=== PATIENT | male | born 1985 | race Caucasian/White ===

== ENCOUNTER 2018-01-28 14:13 | Emergency (ER) | payer SELFPAY ==
[2018-01-28 14:18] VITALS: BP 153/98; PULSE 114; RESP 19; TEMP 36.8; O2SAT 99; BMI 27.1
--- NOTE | 2018-01-28 14:28 | DI.RAD.S_ITS ---
PROCEDURE: XR CHEST 1V INDICATIONS: Chest pain. TECHNIQUE: One view of the chest was acquired. COMPARISON: [facility], , CHEST 2 VIEW, 04/28/2011, 15:03. FINDINGS: Surgical changes and devices: None. Lungs and pleura: No pleural effusions or pneumothorax. Lungs are clear. Mediastinum: Mediastinal contours appear normal. Heart size is normal. Bones and chest wall: No suspicious bony lesions. Overlying soft tissues appear unremarkable. IMPRESSION: Mild cardiomegaly. Dictated by: Karol Butts M.D. on 01/28/2018 at 15:05 Approved by: Karol Butts M.D. on 01/28/2018 at 15:05
--- NOTE | 2018-01-28 14:59 | ED.CHESTPAIN ---
HPI - Chest Pain General Chief Complaint: Chest Pain Stated Complaint: Panic/Chest Pain Time Seen by Provider: 01/28/18 14:38 Source: patient and police Mode of arrival: ambulatory Limitations: no limitations History of Present Illness HPI narrative: Patient is a 32-year-old male presenting with chest pain. He was being booked for a warrant when he suddenly developed chest pain. Please brought him in for evaluation. He says he feels left-sided chest pain that hurts when he breathes sometimes he denies fever or cough. He does take ibuprofen as needed he has no abdominal pain. MD complaint: chest pain Related Data Home Medications Medication Instructions Recorded Confirmed ibuprofen #0 12/26/11 Review of Systems Review of Systems GENERAL: Denies chills, fatigue, malaise, fever, sweats, travel HEENT: Denies sinus pain, ear pain, sore throat, difficulty swallowing, neck pain RESPIRATORY: Denies dyspnea, cough, wheezing, hemoptysis, sputum. CARDIOVASCULAR: See HPI GASTROINTESTINAL: Denies nausea, vomiting, abdominal pain, diarrhea, constipation, melena. : Denies dysuria, frequency, incontinence, hematuria, urinary retention, flank pain. MUSCULOSKELETAL: Denies weakness, joint pain, or bony pain SKIN: No rash, no erythema, no pruritus NEUROLOGIC: Denies weakness, dizziness, headache, numbness, change in speech, confusion PSYCHIATRIC: No concerning psychosocial issues. 12 point review of systems is negative except for those stated above and HPI [facility] Medical History Patient denies medical problems (Acute) Social History Smoking Status: Current every day smoker Exam Initial Vital Signs Initial Vital Signs: Vital Signs Temperature 98.2 F 01/28/18 14:18 Pulse Rate 114 H 01/28/18 14:18 Respiratory Rate 19 01/28/18 14:18 Blood Pressure 153/98 H 01/28/18 14:18 Pulse Oximetry 99 01/28/18 14:18 GENERAL: Anxious male no acute distress is speaking in full sentences. HEENT: Head atraumatic,EOMI, pupils reactive, CARDIOVASCULAR: Regular rate and rhythm without murmurs, rubs or gallops. RESPIRATORY: Breath sounds equal bilaterally, no wheezes rales or rhonchi. ABDOMEN: Soft, nontender. Normoactive bowel sounds all 4 quadrants. No guarding or rebound. EXTREMITIES: Normal range of motion, no clubbing or edema. Neurovascularly intact NEUROLOGICAL: Alert and oriented x4.Normal gait and speech. SKIN: Warm, dry, no laceration, no petechiae, no rashes or lesions. Course Orders Ordered: ED Orders 01/28/18 14:19 EKG-12 Lead Routine 01/28/18 14:28 Chest [XR chest 1V] Stat Discontinued Medications Al Hydrox/Mg Hydrox/Simethicone 20 ml/ Lidocaine HCl 15 ml 0 ml PO NOW ONE Stop: 01/28/18 14:53 Last Admin: 01/28/18 15:02 Dose: 45 ml Ibuprofen (Advil) 800 mg PO NOW ONE Stop: 01/28/18 14:53 Last Admin: 01/28/18 15:02 Dose: 800 mg Vital Signs - 8 hr 01/28/18 14:18 Temperature 98.2 F Pulse Rate 114 H Respiratory Rate 19 Blood Pressure 153/98 H Pulse Oximetry 99 MDM - Chest Pain Imaging Data Chest x-ray: Radiologist's impression: [address] [address] XRay Report Signed Patient: Aniyah Sears [facility]#: [id number] : 1985Acct:[id number] Age/Sex: 32 / MDate of Service: 01/28/18 Loc: ED Accession Number: [id number] Procedure: XR chest 1V Ordering Provider: Concepción Brock D.O. PROCEDURE: XR CHEST 1V INDICATIONS: Chest pain. TECHNIQUE: One view of the chest was acquired. COMPARISON: [facility], , CHEST 2 VIEW, 04/28/2011, 15:03. FINDINGS: Surgical changes and devices: None. Lungs and pleura: No pleural effusions or pneumothorax. Lungs are clear. Mediastinum: Mediastinal contours appear normal. Heart size is normal. Bones and chest wall: No suspicious bony lesions. Overlying soft tissues appear unremarkable. IMPRESSION: Mild cardiomegaly. Dictated by: Karol Butts M.D. on 01/28/2018 at 15:05 ECG Data Attestation: I personally reviewed and interpreted this ECG as follows: Prior ECG tracings: not available for review Interpretation: Sinus rhythm rate [address] changes no T-wave inversions. [facility] Narrative Medical decision making narrative: Offered of blood work and more evaluation for patient. However patient was not want that at this time. He has been released by the police. He would like to go take care of his warrant. He is overall feeling better he feels like his breathing has come down. Discharge Plan Departure Patient Disposition: Home Clinical Impression: Atypical chest pain Discharge Date/Time: 01/28/18 15:19 Interventions: ED Discharge Assessment Last Done: 01/28/18 15:19 Instructions: DI for Atypical Chest Pain Activity Restrictions/Additional Instructions: *You have been diagnosed with atypical chest pain *What to do: X-ray and EKG are within limits *Continue to take medications as directed *Follow up with your primary care provider in 2-3 days *Return to ER if you should have any new, worsening or concerning symptoms Prescriptions: No Action ibuprofen 200 MG capsule Qty: 0 RF: 0 Referrals: [facility] [Provider Group]
[2018-01-28] MEDS: IBUPROFEN 400 MG TABLET 800 MG PO (15:02)
[2018-01-28] MEDS: MAG HYDROX/ALUMINUM/SIMETH SUS 20 ML, LIDOCAINE VISCOUS 2% 15 ML PO (15:02)
--- NOTE | 2018-01-28 15:02 | ED_ITS ---
HPI - Chest Pain General Chief Complaint: Chest Pain Stated Complaint: Panic/Chest Pain Time Seen by Provider: 01/28/18 14:38 Source: patient and police Mode of arrival: ambulatory Limitations: no limitations History of Present Illness HPI narrative: Patient is a 32-year-old male presenting with chest pain. He was being booked for a warrant when he suddenly developed chest pain. Please brought him in for evaluation. He says he feels left-sided chest pain that hurts when he breathes sometimes he denies fever or cough. He does take ibuprofen as needed he has no abdominal pain. MD complaint: chest pain Related Data Home Medications Medication Instructions Recorded Confirmed ibuprofen #0 12/26/11 Review of Systems Review of Systems GENERAL: Denies chills, fatigue, malaise, fever, sweats, travel HEENT: Denies sinus pain, ear pain, sore throat, difficulty swallowing, neck pain RESPIRATORY: Denies dyspnea, cough, wheezing, hemoptysis, sputum. CARDIOVASCULAR: See HPI GASTROINTESTINAL: Denies nausea, vomiting, abdominal pain, diarrhea, constipation, melena. : Denies dysuria, frequency, incontinence, hematuria, urinary retention, flank pain. MUSCULOSKELETAL: Denies weakness, joint pain, or bony pain SKIN: No rash, no erythema, no pruritus NEUROLOGIC: Denies weakness, dizziness, headache, numbness, change in speech, confusion PSYCHIATRIC: No concerning psychosocial issues. 12 point review of systems is negative except for those stated above and HPI [facility] Medical History Patient denies medical problems (Acute) Social History Smoking Status: Current every day smoker Exam Initial Vital Signs Initial Vital Signs: Vital Signs Temperature 98.2 F 01/28/18 14:18 Pulse Rate 114 H 01/28/18 14:18 Respiratory Rate 19 01/28/18 14:18 Blood Pressure 153/98 H 01/28/18 14:18 Pulse Oximetry 99 01/28/18 14:18 GENERAL: Anxious male no acute distress is speaking in full sentences. HEENT: Head atraumatic,EOMI, pupils reactive, CARDIOVASCULAR: Regular rate and rhythm without murmurs, rubs or gallops. RESPIRATORY: Breath sounds equal bilaterally, no wheezes rales or rhonchi. ABDOMEN: Soft, nontender. Normoactive bowel sounds all 4 quadrants. No guarding or rebound. EXTREMITIES: Normal range of motion, no clubbing or edema. Neurovascularly intact NEUROLOGICAL: Alert and oriented x4.Normal gait and speech. SKIN: Warm, dry, no laceration, no petechiae, no rashes or lesions. Course Orders Ordered: ED Orders 01/28/18 14:19 EKG-12 Lead Routine 01/28/18 14:28 Chest [XR chest 1V] Stat Discontinued Medications Al Hydrox/Mg Hydrox/Simethicone 20 ml/ Lidocaine HCl 15 ml 0 ml PO NOW ONE Stop: 01/28/18 14:53 Last Admin: 01/28/18 15:02 Dose: 45 ml Ibuprofen (Advil) 800 mg PO NOW ONE Stop: 01/28/18 14:53 Last Admin: 01/28/18 15:02 Dose: 800 mg Vital Signs - 8 hr 01/28/18 14:18 Temperature 98.2 F Pulse Rate 114 H Respiratory Rate 19 Blood Pressure 153/98 H Pulse Oximetry 99 MDM - Chest Pain Imaging Data Chest x-ray: Radiologist's impression: [address] [address] XRay Report Signed Patient: Aniyah Sears [facility]R#: [id number] : 1985Acct:[id number] Age/Sex: 32 / MDate of Service: 01/28/18 Loc: ED Accession Number: [id number] Procedure: XR chest 1V Ordering Provider: Concepción Brock D.O. PROCEDURE: XR CHEST 1V INDICATIONS: Chest pain. TECHNIQUE: One view of the chest was acquired. COMPARISON: [facility], , CHEST 2 VIEW, 04/28/2011, 15:03. FINDINGS: Surgical changes and devices: None. Lungs and pleura: No pleural effusions or pneumothorax. Lungs are clear. Mediastinum: Mediastinal contours appear normal. Heart size is normal. Bones and chest wall: No suspicious bony lesions. Overlying soft tissues appear unremarkable. IMPRESSION: Mild cardiomegaly. Dictated by: Karol Butts M.D. on 01/28/2018 at 15:05 ECG Data Attestation: I personally reviewed and interpreted this ECG as follows: Prior ECG tracings: not available for review Interpretation: Sinus rhythm rate [address] changes no T-wave inversions. [facility] Narrative Medical decision making narrative: Offered of blood work and more evaluation for patient. However patient was not want that at this time. He has been released by the police. He would like to go take care of his warrant. He is overall feeling better he feels like his breathing has come down. Discharge Plan Departure Patient Disposition: Home Clinical Impression: Atypical chest pain Discharge Date/Time: 01/28/18 15:19 Interventions: ED Discharge Assessment Last Done: 01/28/18 15:19 Instructions: DI for Atypical Chest Pain Activity Restrictions/Additional Instructions: *You have been diagnosed with atypical chest pain *What to do: X-ray and EKG are within limits *Continue to take medications as directed *Follow up with your primary care provider in 2-3 days *Return to ER if you should have any new, worsening or concerning symptoms Prescriptions: No Action ibuprofen 200 MG capsule Qty: 0 RF: 0 Referrals: [facility] [Provider Group]
== END 2018-01-28 15:19 | disposition home or self-care (01) ==
PROVIDERS: Emergency Provider Emergency Medicine
DX: R07.89 Other chest pain (principal)
CPT/HCPCS: 71045; 93005; 93010; 99282; 99284

== ENCOUNTER → 2020-06-15 08:37 | Outpatient (CLI) | payer OTHER, SELFPAY ==
[2020-06-15] MEDS: COVID-19 VACC #1, MRNA(MOD) 100 MCG/0.5 ML VIAL IM (08:48)
== END ==
PROVIDERS: Visit Provider Internal Medicine
DX: Z23 Encounter for immunization (principal)
CPT/HCPCS: 0011A; 91301

== ENCOUNTER → 2020-07-13 07:38 | Outpatient (CLI) | payer OTHER, SELFPAY ==
[2020-07-13] MEDS: COVID-19 VACC #2, MRNA(MOD) 100 MCG/0.5 ML VIAL IM (07:48)
== END ==
PROVIDERS: Visit Provider Internal Medicine
DX: Z23 Encounter for immunization (principal)
CPT/HCPCS: 0012A; 91301

== ENCOUNTER 2022-11-08 16:58 | Observation (INO) | payer OTHER, SELFPAY ==
[2022-11-08] VITALS (12 sets, daily range): BP systolic 148–187; BP diastolic 76–108; PULSE 50–91; RESP 18–32; TEMP 35.9–36.6; O2SAT 95–100; BMI 35.2
[2022-11-08] MEDS: ONDANSETRON 4 MG/2 ML INJ IV (17:40)
[2022-11-08 17:42] LABS: Add Manual Diff / Slide Review NO; Basophils Absolute Auto 100 /uL (0-100); Basophils Percent Auto 0.5 % (0-2); Eosinophils Absolute Auto 100 /uL (0-450); Eosinophils Percent Auto 0.4 % (2-4); Hematocrit 44.6 % (41-53); Hemoglobin 15.7 g/dL (13.5-17.5); Lymphocytes Absolute Auto 2400 /uL (1100-4500); Lymphocytes Percent Auto 14.6 % (25-40); Mean Corpuscular HGB Conc 35.2 % (30-36); Mean Corpuscular Hemoglobin 29.3 PG (26-34); Mean Corpuscular Volume 83.3 fL (80-100); Monocytes Absolute Auto 1000 /uL (0-900); Monocytes Percent Auto 6.2 % (3-14); Neutrophils Absolute Auto 12900 /uL (1500-7000); Neutrophils Percent Auto 78.3 % (50-75); Platelet Count 301 X10^3/uL (150-400); Red Blood Cell Count 5.36 X10^6/uL (4.5-5.9); Red Cell Distribution Width 13.2 % (11.6-14.8); White Blood Cell Count 16.5 X10^3/uL (4.5-11.0)
--- NOTE | 2022-11-08 17:46 | DI.US.S_ITS ---
PROCEDURE: US ABDOMEN LIMITED INDICATIONS: RIGHT UPPER QUADRANT PAIN/ELEVATED WHITE BLOOD CELL COUNT TECHNIQUE: Real-time scanning was performed of the abdominal and retroperitoneal organs, with image documentation. COMPARISON: None. FINDINGS: Liver: Liver is normal in size and demonstrates mildly increased echotexture likely secondary to of hepatic fatty infiltration. Hypoechoic area adjacent to the gallbladder fossa likely secondary to fat sparing. Gallbladder: There is nonmobile gallstones in the gallbladder neck. Gallbladder is distended. No gallbladder wall thickening or pericholecystic fluid. There is sonographic Wilkinson's sign. Biliary ducts: Intrahepatic bile ducts are non-dilated. Extrahepatic bile duct caliber measures 4.2 mm. Normal is 6-7 mm or less in diameter, or 10 mm or less post-cholecystectomy. Pancreas: Visualized portions of the pancreas are sonographically normal. Miscellaneous: No free abdominal fluid. IMPRESSION: 1. Cholelithiasis with a nonmobile gallstone in the gallbladder neck. Gallbladder is distended. There is sonographic Wilkinson sign. No gallbladder wall thickening or pericholecystic fluid collection. If there is clinical suspicion for acute cholecystitis, consider HIDA scan. 2. Diffusely increased hepatic echotexture. This finding is most likely secondary to hepatic fatty infiltration although other hepatocellular disease may have a similar appearance. Recommend clinical correlation. Dictated by: Karol Butts M.D. on 11/08/2022 at 18:51 Approved by: Karol Butts M.D. on 11/08/2022 at 18:54
[2022-11-08] MEDS: SODIUM CHLORIDE 0.9% 500 ML 1000 ML IV (17:53)
--- NOTE | 2022-11-08 17:56 | ED.ABDPAIN ---
HPI - Abdominal Pain <Martha Gibbs PA-C - Last Filed: 11/08/22 19:20> General Chief Complaint: Abdominal Pain Stated Complaint: T-2 TESTED POSITVE COVID, KNOT IN STOMACH Time Seen by Provider: 11/08/22 17:44 Source: patient Mode of arrival: Ambulatory History of Present Illness HPI narrative: Patient is a 37-year-old male who 1st tested positive for COVID 8 days ago. His symptoms were runny nose and body aches. Over the past 24 hours he is developed abdominal pain and can not keep any food down due to nausea and vomiting. Feels like he needs to have a bowel movement but can not. Last bowel movement was yesterday. His pain is mostly in the right upper quadrant. He is no history of abdominal surgeries aside from it inguinal hernia repair as a child and denies any recent fever. Related Data Home Medications Medication Instructions Recorded Confirmed ibuprofen 200 mg capsule 600 mg PO PRN PRN Pain (Scale 12/26/11 11/08/22 Score 1-3) ##0 Allergies Allergy/AdvReac Type Severity Reaction Status Date / Time No Known Drug Allergies Allergy Verified 11/08/22 17:14 Review of Systems <Martha Gibbs PA-C - Last Filed: 11/08/22 19:20> Review of Systems ROS Unobtainable: All systems reviewed & are unremarkable except as noted in HPI and below Patient History <Martha Gibbs PA-C - Last Filed: 11/08/22 19:20> Medical History Patient denies medical problems Social History household members: spouse Smoking Status: Current every day smoker alcohol intake: former Smoking Status: Current every day smoker alcohol intake frequency: a few times a week Substance Use Type: marijuana Exam <Martha Gibbs PA-C - Last Filed: 11/08/22 19:20> Narrative Exam Narrative: GENERAL: 37 year old patient appears stated age. Well-developed patient, in moderate distress. Patient appears uncomfortable. NEURO: AOx3. HEAD: Atraumatic. Normocephalic. EYES: Pupils equal round and reactive. Extraocular motions intact. No scleral icterus. No injection or drainage. ENT: Nose without bleeding or purulent drainage. Airway patent. CARDIOVASCULAR: Regular rate and rhythm without murmurs, gallops, or rubs. RESPIRATORY: Clear to auscultation. Breath sounds equal bilaterally. No wheezes, rales, or rhonchi. GASTROINTESTINAL: Abdomen soft, generalized abdominal tenderness that radiates to right upper quadrant, positive Wilkinson sign, negative over McBurney's. EXTREMITIES: No edema or joint tenderness. SKIN: No rash or erythema of visible areas Initial Vital Signs Initial Vital Signs: Vital Signs Temperature 97.8 F 11/08/22 17:14 Pulse Rate 91 H 11/08/22 17:14 Respiratory Rate 18 11/08/22 17:14 Pulse Oximetry 99 11/08/22 17:14 Oxygen Delivery Method Room Air 11/08/22 17:14 <Kimmy Johansen MD - Last Filed: 11/08/22 23:31> Initial Vital Signs Initial Vital Signs: Vital Signs Temperature 97.8 F 11/08/22 17:14 Pulse Rate 91 H 11/08/22 17:14 Respiratory Rate 18 11/08/22 17:14 Pulse Oximetry 99 11/08/22 17:14 Oxygen Delivery Method Room Air 11/08/22 17:14 Course <Martha Gibbs PA-C - Last Filed: 11/08/22 19:20> Orders Ordered: ED Orders 11/08/22 17:28 Complete Blood Count AUTO DIFF Stat 11/08/22 17:46 US abdomen limited Stat 11/08/22 17:50 Comprehensive Metabolic Panel Stat Lipase Stat Hydralazine HCl (Hydralazine 20 Mg/Ml Vial) 10 mg IV Q6HR PRN PRN Reason: Hypertension, if SBP >180 Hydromorphone HCl (Hydromorphone 0.5 Mg Inj) 0.5 mg IV Q2H PRN PRN Reason: Pain, Severe (7-10) Last Admin: 11/08/22 20:50 Dose: 0.5 mg Documented By: AKP Sodium Chloride (Normal Saline 0.9%) 1,000 mls @ 125 mls/hr IV CONT ALAN Last Admin: 11/08/22 21:48 Dose: 125 mls/hr Documented By: SR Ondansetron HCl (Ondansetron 4 Mg/2 Ml Inj) 4 mg IV NOW PRN PRN Reason: Nausea And Vomiting Last Admin: 11/08/22 17:40 Dose: 4 mg Documented By: KAREY Ondansetron HCl (Ondansetron 4 Mg/2 Ml Inj) 4 mg IV Q4HR PRN PRN Reason: Nausea And Vomiting Discontinued Medications Hydromorphone HCl (Hydromorphone 0.5 Mg Inj) 0.5 mg IV NOW ONE Stop: 11/08/22 17:58 Last Admin: 11/08/22 18:01 Dose: 0.5 mg Documented By: KAREY Hydromorphone HCl (Hydromorphone 0.5 Mg Inj) 0.5 mg IV NOW ONE Stop: 11/08/22 18:18 Last Admin: 11/08/22 18:30 Dose: 0.5 mg Documented By: RUBÉN Sodium Chloride (Normal Saline 0.9%) 500 mls @ 1,000 mls/hr IV BOLUS ONE Stop: 11/08/22 18:16 Last Infusion: 11/08/22 18:33 Dose: 0 mls/hr Documented By: Admin: 11/08/22 17:53 Dose: 1,000 mls/hr Documented By: KAREY Piperacillin Sod/Tazobactam (Sod 4.5 gm/ Sodium Chloride) 100 mls @ 200 mls/hr IV NOW ONE Stop: 11/08/22 18:23 Last Infusion: 11/08/22 19:14 Dose: 0 mls/hr Documented By: Admin: 11/08/22 18:30 Dose: 200 mls/hr Documented By: RUBÉN Ketorolac Tromethamine (Ketorolac 30 Mg/Ml Vial) 15 mg IV NOW ONE Stop: 11/08/22 19:17 Last Admin: 11/08/22 19:21 Dose: 15 mg Documented By: KAREY Vital Signs Vital signs: Vital Signs - 8 hr 11/08/22 17:14 11/08/22 17:44 11/08/22 17:59 Temperature 97.8 F Pulse Rate 91 H 63 50 L Respiratory Rate 18 30 H Blood Pressure 182/108 H Pulse Oximetry 99 97 100 Oxygen Delivery Method Room Air Room Air 11/08/22 17:57 11/08/22 17:57 11/08/22 18:00 Temperature Pulse Rate 64 Respiratory Rate 25 H Blood Pressure 182/108 H 187/103 H Pulse Oximetry 98 Oxygen Delivery Method 11/08/22 18:00 11/08/22 18:25 11/08/22 18:25 Temperature Pulse Rate 51 L 66 Respiratory Rate 23 27 H Blood Pressure 184/98 H Pulse Oximetry 100 98 Oxygen Delivery Method 11/08/22 18:30 11/08/22 18:31 11/08/22 18:31 Temperature Pulse Rate 65 61 Respiratory Rate 32 H 27 H Blood Pressure 154/76 H Pulse Oximetry 99 99 Oxygen Delivery Method Room Air 11/08/22 19:00 11/08/22 19:01 11/08/22 19:01 Temperature Pulse Rate 64 63 Respiratory Rate 24 24 Blood Pressure 183/98 H Pulse Oximetry 96 95 Oxygen Delivery Method 11/08/22 19:12 11/08/22 19:12 Temperature Pulse Rate 66 Respiratory Rate 19 Blood Pressure 160/90 H Pulse Oximetry 97 Oxygen Delivery Method Room Air <Kimmy Johansen MD - Last Filed: 11/08/22 23:31> Orders Ordered: ED Orders 11/08/22 17:28 Complete Blood Count AUTO DIFF Stat 11/08/22 17:46 US abdomen limited Stat 11/08/22 17:50 Comprehensive Metabolic Panel Stat Lipase Stat Hydralazine HCl (Hydralazine 20 Mg/Ml Vial) 10 mg IV Q6HR PRN PRN Reason: Hypertension, if SBP >180 Hydromorphone HCl (Hydromorphone 0.5 Mg Inj) 0.5 mg IV Q2H PRN PRN Reason: Pain, Severe (7-10) Last Admin: 11/08/22 20:50 Dose: 0.5 mg Documented By: AKP Sodium Chloride (Normal Saline 0.9%) 1,000 mls @ 125 mls/hr IV CONT ALAN Last Admin: 11/08/22 21:48 Dose: 125 mls/hr Documented By: SR Ondansetron HCl (Ondansetron 4 Mg/2 Ml Inj) 4 mg IV NOW PRN PRN Reason: Nausea And Vomiting Last Admin: 11/08/22 17:40 Dose: 4 mg Documented By: SB Ondansetron HCl (Ondansetron 4 Mg/2 Ml Inj) 4 mg IV Q4HR PRN PRN Reason: Nausea And Vomiting Discontinued Medications Hydromorphone HCl (Hydromorphone 0.5 Mg Inj) 0.5 mg IV NOW ONE Stop: 11/08/22 17:58 Last Admin: 11/08/22 18:01 Dose: 0.5 mg Documented By: KAREY Hydromorphone HCl (Hydromorphone 0.5 Mg Inj) 0.5 mg IV NOW ONE Stop: 11/08/22 18:18 Last Admin: 11/08/22 18:30 Dose: 0.5 mg Documented By: RUBÉN Sodium Chloride (Normal Saline 0.9%) 500 mls @ 1,000 mls/hr IV BOLUS ONE Stop: 11/08/22 18:16 Last Infusion: 11/08/22 18:33 Dose: 0 mls/hr Documented By: Admin: 11/08/22 17:53 Dose: 1,000 mls/hr Documented By: KAREY Piperacillin Sod/Tazobactam (Sod 4.5 gm/ Sodium Chloride) 100 mls @ 200 mls/hr IV NOW ONE Stop: 11/08/22 18:23 Last Infusion: 11/08/22 19:14 Dose: 0 mls/hr Documented By: Admin: 11/08/22 18:30 Dose: 200 mls/hr Documented By: RUBÉN Ketorolac Tromethamine (Ketorolac 30 Mg/Ml Vial) 15 mg IV NOW ONE Stop: 11/08/22 19:17 Last Admin: 11/08/22 19:21 Dose: 15 mg Documented By: KAREY Vital Signs Vital signs: Vital Signs - 8 hr 11/08/22 17:14 11/08/22 17:44 11/08/22 17:59 Temperature 97.8 F Pulse Rate 91 H 63 50 L Respiratory Rate 18 30 H Blood Pressure 182/108 H Pulse Oximetry 99 97 100 Oxygen Delivery Method Room Air Room Air 11/08/22 17:57 11/08/22 17:57 11/08/22 18:00 Temperature Pulse Rate 64 Respiratory Rate 25 H Blood Pressure 182/108 H 187/103 H Pulse Oximetry 98 Oxygen Delivery Method 11/08/22 18:00 11/08/22 18:25 11/08/22 18:25 Temperature Pulse Rate 51 L 66 Respiratory Rate 23 27 H Blood Pressure 184/98 H Pulse Oximetry 100 98 Oxygen Delivery Method 11/08/22 18:30 11/08/22 18:31 11/08/22 18:31 Temperature Pulse Rate 65 61 Respiratory Rate 32 H 27 H Blood Pressure 154/76 H Pulse Oximetry 99 99 Oxygen Delivery Method Room Air 11/08/22 19:00 11/08/22 19:01 11/08/22 19:01 Temperature Pulse Rate 64 63 Respiratory Rate 24 24 Blood Pressure 183/98 H Pulse Oximetry 96 95 Oxygen Delivery Method 11/08/22 19:12 11/08/22 19:12 Temperature Pulse Rate 66 Respiratory Rate 19 Blood Pressure 160/90 H Pulse Oximetry 97 Oxygen Delivery Method Room Air MDM - Abdominal Pain <Martha Gibbs PA-C - Last Filed: 11/08/22 19:20> Lab Data 11/08/22 17:28 11/08/22 17:50 Labs: Lab Results 11/08/22 11/08/22 Range/Units 17:28 17:50 WBC 16.5 H (4.5-11.0) X10^3/uL RBC 5.36 (4.5-5.9) X10^6/uL Hgb 15.7 (13.5-17.5) g/dL Hct 44.6 (41-53) % MCV 83.3 (80-100) fL MCH 29.3 (26-34) PG MCHC 35.2 (30-36) % RDW 13.2 (11.6-14.8) % Plt Count 301 (150-400) X10^3/uL Neut % (Auto) 78.3 H (50-75) % Lymph % (Auto) 14.6 L (25-40) % [place] % (Auto) 6.2 (3-14) % Eos % (Auto) 0.4 L (2-4) % Baso % (Auto) 0.5 (0-2) % Neut # (Auto) 64440 H (3242-7932) /uL Lymph # (Auto) 2400 (8984-9951) /uL [place] # (Auto) 1000 H (0-900) /uL Eos # (Auto) 100 (0-450) /uL Baso # (Auto) 100 (0-100) /uL Sodium 139 (137-145) mmol/L Potassium 3.9 (3.4-5.1) mmol/L Chloride 103 (98-107) mmol/L Carbon Dioxide 27 (22-32) mmol/L BUN 5 L (9-20) mg/dL Creatinine 0.68 (0.66-1.25) mg/dL Estimated GFR > 60 (>60) mL/min BUN/Creatinine Ratio 7.4 (6-22) Glucose 124 H (70-100) mg/dL Calcium 10.1 (8.4-10.2) mg/dL Total Bilirubin 0.9 (0.2-1.3) mg/dL AST 35 (17-59) IU/L ALT 58 H (<50) IU/L Alkaline Phosphatase 63 (38-126) U/L Total Protein 8.2 (6.3-8.2) g/dL Albumin 4.4 (3.5-5.0) g/dL Globulin 3.8 (1.7-4.1) g/dL Albumin/Globulin Ratio 1.2 (1.0-2.8) Lipase 32 (23-300) U/L Imaging Data US - abdomen: Radiologist's Impression: PROCEDURE:? US ABDOMEN LIMITED ? INDICATIONS:? RIGHT UPPER QUADRANT PAIN/ELEVATED WHITE BLOOD CELL COUNT ? TECHNIQUE:? Real-time scanning was performed of the abdominal and retroperitoneal organs, with image documentation.? ? COMPARISON:? None. ? FINDINGS:? ? Liver:? Liver is normal in size and demonstrates mildly increased echotexture likely secondary to of hepatic fatty infiltration.? Hypoechoic area adjacent to the gallbladder fossa likely secondary to fat sparing. Gallbladder:? There is nonmobile gallstones in the gallbladder neck.? Gallbladder is distended. No gallbladder wall thickening or pericholecystic fluid.? There is sonographic Wilkinson's sign. Biliary ducts:? Intrahepatic bile ducts are non-dilated.? Extrahepatic bile duct caliber measures 4.2 mm.? Normal is 6-7 mm or less in diameter, or 10 mm or less post-cholecystectomy.? Pancreas:? Visualized portions of the pancreas are sonographically normal.? Miscellaneous:? No free abdominal fluid.? ? ? IMPRESSION:? ? 1. Cholelithiasis with a nonmobile gallstone in the gallbladder neck.? Gallbladder is distended.? There is sonographic Wilkinson sign.? No gallbladder wall thickening or pericholecystic fluid collection.? If there is clinical suspicion for acute cholecystitis, consider HIDA scan. ? 2.? Diffusely increased hepatic echotexture. This finding is most likely secondary to hepatic fatty infiltration although other hepatocellular disease may have a similar appearance. Recommend clinical correlation. ? ? ? Dictated by: Karol Butts M.D. on 11/08/2022 at 18:51 ? ? Approved by: Karol Butts M.D. on 11/08/2022 at 18:54 ? ECG Data Interpretation: normal sinus rhythm, rate 77, pr 182, no ST-T changes MDM Narrative Medical decision making narrative: Multiple etiologies for patient's symptoms considered including, but not limited to: Gastroenteritis, cholecystitis, pyelonephritis, diverticulitis, appendicitis. Labs notable for white count of 16k with left shift. AST very mildly elevated at 58. Labs otherwise without clinically significant abnormality. Patient hypertensive but quite uncomfortable. Patient's pain controlled with 1mg hydromorphone in the emergency department. We will treat pain primarily and hypertension when pain is under control. Given 1 L IV fluids, NPO and started Zosyn. US with nonmobile gallstones and gallbladder distension. Discussed with Dr. Aviles; will admit overnight for pain control, NPO after midnight, possible OR tomorrow. <Kimmy Johansen MD - Last Filed: 11/08/22 23:31> Lab Data Labs: Lab Results 11/08/22 11/08/22 Range/Units 17:28 17:50 WBC 16.5 H (4.5-11.0) X10^3/uL RBC 5.36 (4.5-5.9) X10^6/uL Hgb 15.7 (13.5-17.5) g/dL Hct 44.6 (41-53) % MCV 83.3 (80-100) fL MCH 29.3 (26-34) PG MCHC 35.2 (30-36) % RDW 13.2 (11.6-14.8) % Plt Count 301 (150-400) X10^3/uL Neut % (Auto) 78.3 H (50-75) % Lymph % (Auto) 14.6 L (25-40) % [place] % (Auto) 6.2 (3-14) % Eos % (Auto) 0.4 L (2-4) % Baso % (Auto) 0.5 (0-2) % Neut # (Auto) 08237 H (4609-5729) /uL Lymph # (Auto) 2400 (1462-6185) /uL [place] # (Auto) 1000 H (0-900) /uL Eos # (Auto) 100 (0-450) /uL Baso # (Auto) 100 (0-100) /uL Sodium 139 (137-145) mmol/L Potassium 3.9 (3.4-5.1) mmol/L Chloride 103 (98-107) mmol/L Carbon Dioxide 27 (22-32) mmol/L BUN 5 L (9-20) mg/dL Creatinine 0.68 (0.66-1.25) mg/dL Estimated GFR > 60 (>60) mL/min BUN/Creatinine Ratio 7.4 (6-22) Glucose 124 H (70-100) mg/dL Calcium 10.1 (8.4-10.2) mg/dL Total Bilirubin 0.9 (0.2-1.3) mg/dL AST 35 (17-59) IU/L ALT 58 H (<50) IU/L Alkaline Phosphatase 63 (38-126) U/L Total Protein 8.2 (6.3-8.2) g/dL Albumin 4.4 (3.5-5.0) g/dL Globulin 3.8 (1.7-4.1) g/dL Albumin/Globulin Ratio 1.2 (1.0-2.8) Lipase 32 (23-300) U/L Discharge Plan Departure Patient Disposition: Admitted As Inpatient Clinical Impression: Cholecystitis, acute Admit Date/Time: 11/08/22 19:20 Admit Provider: Bina Aviles <Kimmy Johansen MD - Last Filed: 11/08/22 23:31> Sign Out Provider Sign Out Attestation: Care and plan as discussed with ATUL Cabrera Patient is independently examined and chart is reviewed Case is discussed with Dr. Smith, general surgery patient will be admitted with anticipation of cholecystectomy tomorrow Transition orders have been written
[2022-11-08] MEDS: HYDROMORPHONE 0.5 MG INJ IV ×3 (18:01→20:50)
[2022-11-08 18:25] LABS: Alanine Aminotransferase 58 IU/L (<50); Albumin 4.4 g/dL (3.5-5.0); Albumin Globulin Ratio 1.2 (1.0-2.8); Alkaline Phosphatase 63 U/L (38-126); Aspartate Aminotransferase 35 IU/L (17-59); BUN Creatinine Ratio 7.4 (6-22); Bilirubin Total 0.9 mg/dL (0.2-1.3); Blood Urea Nitrogen 5 mg/dL (9-20); Calcium 10.1 mg/dL (8.4-10.2); Carbon Dioxide 27 mmol/L (22-32); Chloride 103 mmol/L (98-107); Estimated Glomerular Filt Rate > 60 mL/min (>60); Globulin 3.8 g/dL (1.7-4.1); Glucose 124 mg/dL (70-100); HEMOLYSIS < 15 (0-50); Lipase 32 U/L (23-300); Potassium 3.9 mmol/L (3.4-5.1); Sodium 139 mmol/L (137-145); Total Protein 8.2 g/dL (6.3-8.2)
[2022-11-08] MEDS: PIPERACILLIN/TAZO 4.5 GM in SODIUM CHLORIDE 0.9% 100 ML IV (18:30)
[2022-11-08] MEDS: KETOROLAC 30 MG/ML VIAL 15 MG IV (19:21)
[2022-11-08] MEDS: SODIUM CHLORIDE 0.9% 1,000 ML 125 ML IV (21:48)
[2022-11-09] VITALS (11 sets, daily range): BP systolic 98–143; BP diastolic 61–97; PULSE 63–96; RESP 16–20; TEMP 35.9–36.9; O2SAT 93–99; BMI 35.2
--- NOTE | 2022-11-09 | PATH_ITS ---
[facility] Accession Number: [id number] No. of containers..01 Tissue . 01 Material submitted: . gallbladder - GALLBLADDER . 01 Diagnosis: Gallbladder, Cholecystectomy: Cholelithiasis with active cholecystitis and serositis. One benign cystic duct lymph node. No evidence of neoplasm. [facility] 11/13/2022 1538 Local . 01 Electronically signed: . Frankie Parkinson MD, PhD, Pathologist NPI- [id number] . 01 Gross description: . The specimen is received in formalin labeled with the patient's name, , and gallbladder, and consists of an intact gallbladder measuring 10.3 x 4.5 x 3.9 cm with unremarkable serosa. The cystic duct margin is inked blue. A pericystic lymph node candidate is identified measuring 0.8 cm in greatest dimension. The lumen contains a brown, roughened calculus measuring 3.2 cm in greatest dimension admixed with red-brown, semisolid bile. The mucosa is brown to kaur and velvety with no yellow discoloration, polyps, or lesions identified. The lawson average 0.3 cm thick. Engine Lathe Tender sections to include the cystic duct margin, intact lymph node candidate, and full-thickness sections are submitted in cassette A1. ([id number]) /R 11/12/2022 0354 Local . 01 Pathologist provided ICD-10: K80.60, K81.0 . 01 CPT . 624804 Specimen Comment: A courtesy copy of this report has been sent to [facility] Pathology Performed at: 01 [facility] [address] [place] [address] [address], [place], [place] [id number] MD Donnie Steele MD Phone: [phone]
[2022-11-09] MEDS: HYDROMORPHONE 0.5 MG INJ IV ×4 (01:27→12:36)
[2022-11-09] MEDS: SODIUM CHLORIDE 0.9% 1,000 ML 125 ML IV (04:45)
--- NOTE | 2022-11-09 11:18 | CM.DANOTE ---
DCP: Case received, EMR reviewed and met with patient. Introduced self and role. Was able to complete DCP assessment based upon information currently available. Patient is a 37 year old male who admitted yesterday evening to the care of the hospitalist team. PCP: None currently Payer: confirmed: [employer] (states that he has [place], will bring in card). Patient came to the hospital via private vehicle secondary to having abdominal pain, unable to keep food down, was vomiting. Notes indicate that patient had tested positive for COVID about 8 days ago. Patient was having difficulty having a bowel movement. Patient was diagnosed with nonmobile gallstones and gallbladder distension. He is having surgery consult today for possible surgery. Met with patient in his room. He was laying in bed, having abdominal pain, and headache. Confirmed that he resides here in [place], is currently employed at [employer]. He has no provider, stated he has not really needed one, but can find one. Let him know that he can also be given resources. He mentioned that he has insurance, [employer] through his work, and will bring in his card. Can update admissions as well. P: DCP to continue to follow. Patient should be able to go home when deemed medically stable. Sobia Russ RN/Workday Director Discharge Planning/Care Management CM Discharge Assessment Start: 11/09/22 11:15 Freq: Status: Active Protocol: Document 11/09/22 11:16 (Rec: 11/09/22 11:18 [id number]) Discharge Planning Assessment Assigned [employer] Supervisor Sobia Russ RN/Workday Director Advance Directives? No History Provided By Patient Prior Living Arrangements House Household Members none Type of transporation used prior to Drives own vehicle admit Independent with ADL's Yes Is patient alert and oriented? Yes Caregiver for Another No Barriers to Discharge No Discharge Plan Home Transportation Arrangement Friend or family Referrals Initiated None needed Whiteboard Updated in Patient Room with Yes name and ext. # of T[employer] Center Supervisor Review Status In Process Next Review Type Continued Stay Review
--- NOTE | 2022-11-09 13:11 | P.HP_ITS ---
History of Present Illness History of Present Illness Date Patient Seen: 11/09/22 Time Patient Seen: 13:11 Chief complaint: T-2 TESTED POSITVE COVID, KNOT IN STOMACH Narrative: 37-year-old male who presents to the emergency room with severe abdominal pain. He said it started yesterday around 2:00 a.m. and it woke him up with pain. At 1st he said it started feeling like a ?twinge? feeling it was off and on but then yesterday during the day it became so severe where the episodes caused pain that put him on his hands and knees and he was vomiting. These symptoms brought him to the emergency room because they were so severe. He is never had severe symptoms like this before. Last food that he remembers having had before the onset of pain was a broccoli and cheddar soup. When asked about symptoms that may have proceeded this episode though not severe he does relate a history of what he calls ?acid reflux from time to time? the symptoms he describes are that when he eats something and after he lays down for a while then he may have some epigastric abdominal pain. He says the pain usually occurs after he wakes up at night having been sleeping for a while. He says that the pain is really intermittent and he has not noticed any pattern of the pain. Sometimes it happens and sometimes it does not. He is had symptoms similar to this he thinks since he was about 13 years old. His mother did have her gallbladder removed and had a similar attack when he was about 8 years old he recalls they were eating pizza and after that she had severe pain vomiting and had her gallbladder removed. She did well after that. Today he is still having significant right upper quadrant pain though the nausea is a little bit improved. He would like to proceed with cholecystectomy. He was positive for COVID about a week ago but has been asymptomatic and otherwise has been feeling well until the onset of the symptoms noted above. He denies cough or upper respiratory symptoms. [facility] Medical History Patient denies medical problems Social History household members: none Smoking Status: Current every day smoker alcohol intake: former Meds Home Medications and Allergies Home Medications Medication Instructions Recorded Confirmed Type ibuprofen 200 mg capsule 600 mg PO PRN PRN Pain (Scale 12/26/11 11/08/22 History Score 1-3) ##0 Allergies Allergy/AdvReac Type Severity Reaction Status Date / Time No Known Drug Allergies Allergy Verified 11/08/22 17:14 Exam Vital Signs (past 8 hours): - 11/09/22 05:30 11/09/22 08:18 11/09/22 12:19 Temperature 96.7 F L 97.2 F L 97.8 F Pulse Rate 81 96 H 87 Respiratory Rate 18 18 19 Blood Pressure 137/89 134/94 H 126/80 Pulse Oximetry 95 96 96 Oxygen Flow Rate 0 0 0 Oxygen Delivery Method Room Air Oxygen Flow Rate 0 Const General: cooperative and in distress (Mild) Nutritional Appearance: obese (BMI 35) Orientation: alert, awake and oriented x3 HENMT Head: normal to inspection Eyes General: appearance normal, both eyes and all related structures Resp Effort & Inspection: normal respiratory effort and able to speak in complete sentences Cardio Rate: regular rate GI Palpation: soft and tender (Right upper quadrant moderate to severe tenderness to palpation. ) Other: Positive Wilkinson sign Objective Labs 11/08/22 17:28 11/08/22 17:50 Labs: Laboratory Results - last 24 hr 11/08/22 11/08/22 17:28 17:50 WBC 16.5 H RBC 5.36 Hgb 15.7 Hct 44.6 MCV 83.3 MCH 29.3 MCHC 35.2 RDW 13.2 Plt Count 301 Neut % (Auto) 78.3 H Lymph % (Auto) 14.6 L [place] % (Auto) 6.2 Eos % (Auto) 0.4 L Baso % (Auto) 0.5 Neut # (Auto) 70179 H Lymph # (Auto) 2400 [place] # (Auto) 1000 H Eos # (Auto) 100 Baso # (Auto) 100 Sodium 139 Potassium 3.9 Chloride 103 Carbon Dioxide 27 BUN 5 L Creatinine 0.68 Estimated GFR > 60 BUN/Creatinine Ratio 7.4 Glucose 124 H Calcium 10.1 Total Bilirubin 0.9 AST 35 ALT 58 H Alkaline Phosphatase 63 Total Protein 8.2 Albumin 4.4 Globulin 3.8 Albumin/Globulin Ratio 1.2 Lipase 32 Assessment & Plan Assessment and plan (1) Cholecystitis, acute: Status: Acute Assessment & Plan narrative: I discussed the risks benefits and alternatives of laparoscopic possible open cholecystectomy. These include but are not limited to bleeding infection and damage to internal organs. I specifically discussed damage to the common bile duct and the process major surgery and transferred to tertiary care center for repair. Generally he understands that there are risks because of the discussed complications that he may require further surgery, procedures or hospitalizations because of complications. He understands these risks as well as the benefit of proceeding with laparoscopic cholecystectomy today and alternatives. Alternatives that were discussed were continuing antibiotic treatment and proceeding with surgery at another time. He understands the risks benefits and alternatives and would like to proceed today.
[2022-11-09 13:35] LABS: COVID19 -Nasal RAPID POSITIVE (Negative)
[2022-11-09] MEDS: ACETAMINOPHEN 325 MG TABLET 975 MG PO ×2 (14:35→19:59)
[2022-11-09] MEDS: LACTATED RINGERS 1,000 ML 42 ML IV ×2 (15:52→17:08)
[2022-11-09] MEDS: CEFAZOLIN 2 GM/100 ML PREMIX 100 ML IV (16:30)
--- NOTE | 2022-11-09 16:38 | SUR.OPER ---
Supine on padded OR bed, head on pillow, safety belt at thigh. Arms secured on padded arm board <90 degrees abduction. Legs uncrossed. Padded footboard in place. Tape over blanket to secure lower legs.
[2022-11-09] MEDS: BUPIVACAINE 0.5% (PF) 30 ML, EPINEPHrine 0.15 MG INJ (16:44)
--- NOTE | 2022-11-09 18:04 | PM.OP.1 ---
Operative Date/Time/Diagnoses Date of procedure: 11/09/22 Time of procedure: 18:04 Pre-op diagnosis: acute cholecystitis Procedure & Clinicians Procedure: Laparoscopic cholecystectomy Same procedure as scheduled: Yes Indications: Acute cholecystitis Surgeon: Bina Aviles Anesthesia Type: General Operative Notes Findings: Gangrenous gallbladder. Specimen(s): other (Gallbladder) Procedure in detail: Patient was taken to the operating room and placed supine on the operating room table. General endotracheal anesthesia was induced. Preoperative antibiotics were administered bilateral SCDs in place. A time-out was performed. The abdomen was prepped and draped in the usual sterile fashion. Local anesthetic was used to infuse above the umbilicus and an 11 blade scalpel was used to incise the skin. Electrocautery used to bring the incision to the anterior abdominal wall fascia which was doubly grasped with 2 Kishan retractors and elevated. The abdominal space was then entered sharply with an 11 blade scalpel. Two stay sutures of 0 Vicryl were placed in the fascial layer. A Opal trocar was then placed into the abdomen and the abdomen was insufflated. A 5 mm 30 degree scope was introduced and the abdomen was inspected there was no sign of entry injury. There was omental attachments in the right upper quadrant. Accessory 5 mm trocars x3 were placed under direct visualization after infusing local anesthetic in the epigastric and subcostal locations. The omental covering was taken down off of the gallbladder and a very dilated very inflamed bright green colored gallbladder was seen. This was photographed. I then introduced a needle and aspirated at least 100 cc of bile out of the gallbladder. After this I was able to grab the gallbladder and retract the dome cephalad. I used my other grasper to grab the neck and my right handed grasper to proceed with the dissection of the critical view using a Penny dissector. I was able to identify the cystic duct entering directly into the gallbladder and multiple view points photographs were taken. I doubly clipped the cystic duct on the stay side and once on the specimen side and ligated it. I then isolated the cystic artery and doubly clipped and ligated the cystic artery. Unfortunately the cystic artery clip became loose and there was some bleeding from the cystic artery stump. I was able to grab the stump with a Penny and place a 2nd 2 very good and secure clips on the bleeding stump. There was about 50 cc of blood loss during this process. The remainder of the surgery went well and the gallbladder was removed from the gallbladder fossa using electrocautery. Electrocautery was used to achieve hemostasis in the liver bed and the gallbladder was placed into the Endo-Catch bag and removed through the umbilical port site. The accessory trocars were removed under direct visualization and the abdomen was desufflated. The stay sutures were then used to close the fascial layer and the skin was closed with running 4-0 Monocryl. The wounds were dressed with Steri-Strips. The patient tolerated the procedure well and went in good condition to the postoperative care unit there were no complications. EBL total was 75
[2022-11-09] MEDS: IBUPROFEN 600 MG TABLET PO (23:40)
[2022-11-10] MEDS: ACETAMINOPHEN 325 MG TABLET 975 MG PO ×2 (01:31→06:30)
[2022-11-10] MEDS: IBUPROFEN 600 MG TABLET PO ×2 (06:28→12:20)
[2022-11-10 08:00] VITALS: BP 107/62; PULSE 75; RESP 16; TEMP 36.4; O2SAT 96
--- NOTE | 2022-11-10 13:04 | PC.NURSE ---
Patient is A&OX4, VSS, afebrile on RA.He reports pain to abdomen is minimal 3-4/10, and well controlled with tylenol and ibuprofen. Steri strips LUIS ENRIQUE C/D/I. Patient tolerates breakfast and lunch well, ambulating in room independently and showers this a.m. He is cleared for discharge today by MD Hurtado. He verbalizes understanding of meds,activity limitations, and site care as well as s/sx of infection. He is escorted to private vehicle for discharge home today with all of his belongings.
--- NOTE | 2022-11-10 13:11 | CM.DPC ---
DCP Cont. Pt ready for d/c home today, supportive family/friends transporting. FORMULA CLERK attempted to call pt's room, however he already d/c'd. Per team rounds, no further d/c needs were indicated.
== END 2022-11-10 13:00 | disposition home or self-care (01) ==
LOC: ED 19:20 → AC 19:21
PROVIDERS: Admitting Provider Surgery; Emergency Provider Physician Assistant; Referring Provider Physician Assistant; Visit Provider Surgery
PROC: 0FT44ZZ Resection of Gallbladder, Percutaneous Endoscopic Approach (ICD-10-PCS; CPT 47562; principal; 2022-11-09 16:00)
DX: K81.0 Acute cholecystitis (principal); U07.1 COVID-19
CPT/HCPCS: 47562; 36415; 76705; 80053; 81003; 83690; 85025; 87635; 93005; 93010; 96361; 96365; 96375; 96376; 99222; 99284; C9803; G0378; J0171; J0330; J0690; J1100; J1170; J1885; J2250; J2405; J2543; J2704; J3010; J3490

== ENCOUNTER 2024-01-15 16:38 | Emergency (ER) | payer SELFPAY ==
[2022-11-08 20:57] VITALS: BMI 35.2
[2024-01-15] VITALS (18 sets, daily range): BP systolic 112–162; BP diastolic 70–105; PULSE 75–112; RESP 14–31; TEMP 36.6; O2SAT 89–100; BMI 36.6
[2024-01-15 17:41] LABS: Add Manual Diff / Slide Review NO; Basophils Absolute Auto 100 /uL (0-100); Basophils Percent Auto 0.8 % (0-2); Eosinophils Absolute Auto 200 /uL (0-450); Eosinophils Percent Auto 1.6 % (2-4); Hematocrit 44.7 % (41-53); Hemoglobin 15.2 g/dL (13.5-17.5); Lymphocytes Absolute Auto 2900 /uL (1100-4500); Lymphocytes Percent Auto 28.1 % (25-40); Mean Corpuscular Hemoglobin 29.6 PG (26-34); Mean Corpuscular Volume 86.9 fL (80-100); Monocytes Absolute Auto 700 /uL (0-900); Monocytes Percent Auto 6.9 % (3-14); Neutrophils Absolute Auto 6500 /uL (1500-7000); Neutrophils Percent Auto 62.6 % (50-75); Platelet Count 282 X10^3/uL (150-400); Red Blood Cell Count 5.15 X10^6/uL (4.5-5.9); Red Cell Distribution Width 13.5 % (11.6-14.8); White Blood Cell Count 10.4 X10^3/uL (4.5-11.0)
--- NOTE | 2024-01-15 17:43 | EKG_ITS ---
[address] [id number] [address] [place] [address] Test Date: 2024-01-15 Pat Name: Aniyah Sears Department: Room: Gender: Male [employer] Market [employer]er: : 1985 Requested By: Order Number: [id number] Reading MD: Memo Culp Measurements Intervals [place] Rate: 92 P: 24 RI: 170 QRS: 37 QRSD: 108 T: 25 QT: 354 QTc: 437 Interpretive Statements Normal sinus rhythm Electronically Signed On 01-18-2024 7:46:09 PST by Memo Culp
[2024-01-15 17:54] LABS: Alanine Aminotransferase 37 IU/L (<50); Albumin 4.2 g/dL (3.5-5.0); Albumin Globulin Ratio 1.2 (1.0-2.8); Alkaline Phosphatase 50 U/L (38-126); Aspartate Aminotransferase 35 IU/L (17-59); Bilirubin Total 0.4 mg/dL (0.2-1.3); Blood Urea Nitrogen 8 mg/dL (9-20); Calcium 9.7 mg/dL (8.4-10.2); Carbon Dioxide 32 mmol/L (22-32); Chloride 103 mmol/L (98-107); Estimated Glomerular Filt Rate > 60 mL/min (>60); Globulin 3.5 g/dL (1.7-4.1); Glucose 110 mg/dL (70-100); HEMOLYSIS < 15 (0-50); Lipase 25 U/L (23-300); Potassium 4.4 mmol/L (3.4-5.1); Sodium 138 mmol/L (137-145); Total Protein 7.7 g/dL (6.3-8.2)
--- NOTE | 2024-01-15 18:02 | ED.ABDPAIN ---
HPI - Abdominal Pain General Chief Complaint: Abdominal Pain Stated Complaint: Abd Pain, Hard Knot Near Belly Button Time Seen by Provider: 01/15/24 17:51 Source: patient Mode of arrival: Ambulatory History of Present Illness HPI narrative: 38-year-old male with no reported past medical history presents by private vehicle from home for central abdominal pain and a hard knot: sensation. Patient states that 3 weeks ago he has had an intermittent bulging sensation in the middle of his abdomen. It has come and gone on its own but today the not felt firm and hard and was causing him pain. Reports previous history of cholecystectomy, denies other abdominal surgeries Related Data Home Medications Medication Instructions Recorded Confirmed ibuprofen 200 mg capsule 600 mg PO PRN PRN Pain (Scale 12/26/11 11/08/22 Score 1-3) ##0 Previous Rx's Medication Instructions Recorded hydrocodone 5 mg-acetaminophen 325 1 tab PO Q8H PRN pain #10 tabs 11/10/22 mg tablet Allergies Allergy/AdvReac Type Severity Reaction Status Date / Time No Known Drug Allergies Allergy Verified 01/15/24 16:51 Patient History Medical History Patient denies medical problems Social History household members: none Smoking Status: Current every day smoker alcohol intake: former Smoking Status: Current every day smoker alcohol intake frequency: a few times a week Substance Use Type: marijuana Exam Initial Vital Signs Initial Vital Signs: Vital Signs Temperature 98 F 01/15/24 16:46 Pulse Rate 112 H 01/15/24 16:46 Respiratory Rate 16 01/15/24 16:46 Blood Pressure 162/105 H 01/15/24 16:46 Pulse Oximetry 99 01/15/24 16:46 Oxygen Delivery Method Room Air 01/15/24 16:46 Const: Awake, alert, uncomfortable, in pain, nontoxic appearing Cardiac: regular rate, regular rhythm RESP: unlabored, clear bilaterally, no wheezing GI: Soft, softball size mass in center abdomen proximal to umbilicus, no peritoneal signs Skin: Warm, Dry, intact, no rashes Neuro: AO x3, CN II-XII grossly intact, moves all extremities Course Orders Ordered: ED Orders 01/15/24 17:14 EKG-12 Lead Stat 01/15/24 17:33 Complete Blood Count AUTO DIFF Stat Comprehensive Metabolic Panel Stat Lactate (Lactic Acid) Stat Lipase Stat 01/15/24 18:01 CT abdomen pelvis w con Stat Discontinued Medications Hydromorphone HCl (Hydromorphone 1 Mg Inj) 1 mg IV NOW ONE Stop: 01/15/24 19:38 Last Admin: 01/15/24 19:49 Dose: 1 mg Documented By: ILANA Hydromorphone HCl (Hydromorphone 0.5 Mg Inj) 0.5 mg IV NOW ONE Stop: 01/15/24 20:16 Last Admin: 01/15/24 21:04 Dose: 0.5 mg Documented By: ILANA Sodium Chloride (Normal Saline 0.9%) 1,000 mls @ 1,000 mls/hr IV BOLUS ONE Stop: 01/15/24 19:00 Last Infusion: 01/15/24 19:17 Dose: Infused Documented By: Admin: 01/15/24 18:15 Dose: 1,000 mls/hr Documented By: RUBÉN Lorazepam (Lorazepam 2 Mg/Ml Inj) 2 mg IV NOW ONE Stop: 01/15/24 20:16 Last Admin: 01/15/24 21:04 Dose: 2 mg Documented By: ILANA Morphine Sulfate (Morphine 4 Mg/Ml Inj) 4 mg IV NOW ONE Stop: 01/15/24 18:02 Last Admin: 01/15/24 18:15 Dose: 4 mg Documented By: RUBÉN Ondansetron HCl (Ondansetron 4 Mg/2 Ml Inj) 4 mg IV NOW PRN PRN Reason: Nausea And Vomiting Ondansetron HCl (Ondansetron 4 Mg Odt) 4 mg PO NOW PRN PRN Reason: Nausea And Vomiting Ondansetron HCl (Ondansetron 4 Mg/2 Ml Inj) 4 mg IV NOW ONE Stop: 01/15/24 18:02 Last Admin: 01/15/24 18:15 Dose: 4 mg Documented By: RUBÉN Vital Signs Vital signs: Vital Signs - 8 hr 01/15/24 17:18 01/15/24 17:19 01/15/24 17:19 Pulse Rate 88 98 H Respiratory Rate 18 Blood Pressure 143/98 H Pulse Oximetry 99 Oxygen Delivery Method Oxygen Flow Rate 01/15/24 17:30 01/15/24 18:00 01/15/24 18:30 Pulse Rate 88 90 85 Respiratory Rate 15 20 26 H Blood Pressure Pulse Oximetry 98 100 95 Oxygen Delivery Method Oxygen Flow Rate 01/15/24 18:57 01/15/24 18:57 01/15/24 19:00 Pulse Rate 83 Respiratory Rate 14 Blood Pressure 138/84 134/85 Pulse Oximetry 98 Oxygen Delivery Method Oxygen Flow Rate 01/15/24 19:00 01/15/24 19:12 01/15/24 19:12 Pulse Rate 82 88 Respiratory Rate 18 15 Blood Pressure 138/88 Pulse Oximetry 97 96 Oxygen Delivery Method Room Air Oxygen Flow Rate 01/15/24 19:30 01/15/24 19:30 01/15/24 20:00 Pulse Rate 87 Respiratory Rate 25 H Blood Pressure 132/71 131/75 Pulse Oximetry 96 Oxygen Delivery Method Oxygen Flow Rate 01/15/24 20:00 01/15/24 20:30 01/15/24 20:30 Pulse Rate 87 86 Respiratory Rate 30 H 24 Blood Pressure 133/74 Pulse Oximetry 94 93 Oxygen Delivery Method Oxygen Flow Rate 01/15/24 21:00 01/15/24 21:00 01/15/24 21:30 Pulse Rate 77 Respiratory Rate 19 Blood Pressure 131/74 123/72 Pulse Oximetry 95 Oxygen Delivery Method Oxygen Flow Rate 01/15/24 21:30 01/15/24 22:00 01/15/24 22:00 Pulse Rate 84 83 Respiratory Rate 20 20 Blood Pressure 119/70 Pulse Oximetry 94 95 Oxygen Delivery Method Room Air Oxygen Flow Rate 01/15/24 22:30 01/15/24 22:30 01/15/24 23:00 Pulse Rate 82 Respiratory Rate 31 H Blood Pressure 113/73 112/70 Pulse Oximetry 92 Oxygen Delivery Method Oxygen Flow Rate 01/15/24 23:00 01/15/24 23:30 01/15/24 23:30 Pulse Rate 79 75 Respiratory Rate 31 H 19 Blood Pressure 133/82 Pulse Oximetry 89 L 91 Oxygen Delivery Method Room Air Oxygen Flow Rate 01/16/24 00:00 01/16/24 00:00 Pulse Rate 74 Respiratory Rate 29 H Blood Pressure 123/81 Pulse Oximetry 92 Oxygen Delivery Method Nasal Cannula Oxygen Flow Rate 2 MDM - Abdominal Pain Lab Data 01/15/24 17:33 01/15/24 17:33 Labs: Lab Results 11/22/24 Range/Units 17:33 WBC 10.4 (4.5-11.0) X10^3/uL RBC 5.15 (4.5-5.9) X10^6/uL Hgb 15.2 (13.5-17.5) g/dL Hct 44.7 (41-53) % MCV 86.9 (80-100) fL MCH 29.6 (26-34) PG MCHC 34.0 (30-36) % RDW 13.5 (11.6-14.8) % Plt Count 282 (150-400) X10^3/uL Neut % (Auto) 62.6 (50-75) % Lymph % (Auto) 28.1 (25-40) % Loving % (Auto) 6.9 (3-14) % Eos % (Auto) 1.6 L (2-4) % Baso % (Auto) 0.8 (0-2) % Neut # (Auto) 6500 (6383-6491) /uL Lymph # (Auto) 2900 (2057-2833) /uL Loving # (Auto) 700 (0-900) /uL Eos # (Auto) 200 (0-450) /uL Baso # (Auto) 100 (0-100) /uL Sodium 138 (137-145) mmol/L Potassium 4.4 (3.4-5.1) mmol/L Chloride 103 (98-107) mmol/L Carbon Dioxide 32 (22-32) mmol/L BUN 8 L (9-20) mg/dL Creatinine 0.89 (0.66-1.25) mg/dL Estimated GFR > 60 (>60) mL/min BUN/Creatinine Ratio 9.0 (6-22) Glucose 110 H (70-100) mg/dL Lactate 1.1 (0.7-2.1) mmol/L Calcium 9.7 (8.4-10.2) mg/dL Total Bilirubin 0.4 (0.2-1.3) mg/dL AST 35 (17-59) IU/L ALT 37 (<50) IU/L Alkaline Phosphatase 50 (38-126) U/L Total Protein 7.7 (6.3-8.2) g/dL Albumin 4.2 (3.5-5.0) g/dL Globulin 3.5 (1.7-4.1) g/dL Albumin/Globulin Ratio 1.2 (1.0-2.8) Lipase 25 (23-300) U/L Imaging Data CT scan - abdomen/pelvis: Radiologist's Impression: PROCEDURE: CT ABDOMEN PELVIS W CON INDICATIONS: bulge ventral abd, concern incarcerated/strangulated hernia TECHNIQUE: After the administration of intravenous contrast, axial sections acquired from the lung bases to the pubic symphysis. Coronal and sagittal reformats were performed. For radiation dose reduction, the following was used: automated exposure control, adjustment of mA and/or kV according to patient size. COMPARISON: None. FINDINGS: Image quality: Diagnostic. Lower Chest: Mild bibasilar dependent atelectasis is seen. Heart size is normal, no pericardial effusion. ABDOMEN: Liver: No solid mass. [id number] hepatic steatosis is seen. Gallbladder: Gallbladder is surgically absent. Biliary ducts: No biliary dilation. Pancreas: No ductal dilation. Spleen: Size is within normal limits. Adrenal Glands: No adrenal nodules. Kidneys and Ureters: No hydronephrosis. No solid mass. No complex renal cystic lesion which requires follow up. Stomach and Bowel: there is no bowel obstruction. No gastric or small bowel wall thickening. No colonic wall thickening. No abscess collection. Appendix is not definitively identified. No secondary CT signs of acute appendicitis in right lower quadrant abdomen. Peritoneum: No abnormal intraperitoneal fluid. No free air. Ventral Wall: Moderate size ventral hernia is seen above the level of umbilicus with the neck measures 2.9 cm in width. The herniation sac contains a short segment of transverse colon. No gross colonic wall thickening is seen within the herniation sac. Abdominal Nodes: No retroperitoneal or mesenteric adenopathy by size criteria. Vessels: Aorta and inferior vena cava are normal in size. PELVIS: Pelvic Organs: Unremarkable. Bladder: No bladder wall thickening, accounting for underdistention. Pelvic Nodes: No enlarged lymph nodes. Miscellaneous: Moderate size left inguinal hernia is seen containing fat only. Bones: No aggressive osseous abnormality. IMPRESSION: 1. Moderate size supraumbilical hernia measures up to 2.9 cm in width and contains a short segment of transverse colon loop. No evidence of incarceration is seen at this time. No bowel obstruction or abnormal bowel wall thickening. No free fluid or free air. 2. Moderate size inguinal hernia containing fat only. 3. Hepatic steatosis, no discrete hepatic lesion. Prior cholecystectomy. Dictated by: Jarad Kemp M.D. on 01/15/2024 at 19:54 Approved by: Jarad Kemp M.D. on 01/15/2024 at 19:58 [facility] Narrative Medical decision making narrative: Softball size mass in center abdomen concerning for ventral hernia. No overlying erythema or peritoneal signs to suggest incarceration, patient was complaining of mild nausea but no vomiting or constipation to suggest obstruction. Laboratory work, CT imaging to be ordered. Laboratory work reviewed, no leukocytosis, lactic acid within normal limits, liver enzymes normal. CT shows ventral hernia without signs of incarceration or strangulation. An ice pack was applied to the hernia and Patient was given Dilaudid and Ativan for analgesia and relaxation. Using gentle pressure the hernia was able to be manipulated back into the abdomen without difficulty. An abdominal binder was placed for support. Patient was monitored to ensure that he had recovery from his medications. He was instructed on the importance of follow up with General surgery as he will likely need surgical repair of the ventral hernia if it continues to cause him problems. Patient discharged home with ride. Discharge Plan Departure Patient Disposition: Home Clinical Impression: Ventral hernia Instructions: DI for Ventral Hernia Activity Restrictions/Additional Instructions: Today we were able to reduce your abdominal hernia, also known as a ventral hernia. Wear the abdominal binder during the day to help prevent the hernia from popping back out. Take care not to strain or lift anything more than 15 lb. It was extremely important that you follow up with a general surgeon as you will likely need this hernia repaired. Take a daily stool softener to avoid constipation and straining to have a bowel movement Prescriptions: No Action ibuprofen 200 MG capsule 600 mg PO PRN PRN (Reason: Pain (Scale Score 1-3)) Qty: 0 hydrocodone-acetaminophen 5-325 mg tablet 1 tab PO Q8H PRN (Reason: pain) Qty: 10 0RF Referrals: Chris Kulkarni MD [Physician] - Stand Alone Forms: Patient Portal/API/Survey
[2024-01-15 18:14] LABS: Lactate (Lactic Acid) 1.1 mmol/L (0.7-2.1)
[2024-01-15] MEDS: MORPHINE 4 MG/ML INJ IV (18:15)
[2024-01-15] MEDS: ONDANSETRON 4 MG/2 ML INJ IV (18:15)
[2024-01-15] MEDS: SODIUM CHLORIDE 0.9% 1,000 ML 1000 ML IV (18:15)
[2024-01-15] MEDS: HYDROMORPHONE 1 MG INJ IV (19:49)
--- NOTE | 2024-01-15 20:19 | PC.NURSE ---
Ice applied to abdomen as per providers request.
[2024-01-15] MEDS: LORazepam 2 MG/ML INJ IV (21:04)
[2024-01-15] MEDS: HYDROMORPHONE 0.5 MG INJ IV (21:04)
--- NOTE | 2024-01-15 22:01 | PC.NURSE ---
Pt resting quietly with eyes closed, resps even and not labored. No distress noted at this time. Pt remains connected to cardiac, blood pressure, pulse ox, and resp monitors with alarms on and audible. Call light within reach.
--- NOTE | 2024-01-15 23:00 | PC.NURSE ---
Placed on 2lnc at this time while patient continues to rest.
[2024-01-16] VITALS: BP 123/81; PULSE 74; RESP 29; O2SAT 92
--- NOTE | 2024-01-16 00:04 | PC.NURSE ---
Pt resting quietly with eyes closed, resps even and not labored. No distress noted at this time. Pt remains connected to cardiac, resp, blood pressure, and pulse ox monitor with alarms on and audible. Call light within reach.
--- NOTE | 2024-01-16 00:32 | PC.NURSE ---
Pt states having trouble finding someone to drive him home, also still very sleepy from administered medications.
== END 2024-01-16 00:47 | disposition home or self-care (01) ==
PROVIDERS: Emergency Medicine; Emergency Provider Emergency Medicine
DX: K43.9 Ventral hernia without obstruction or gangrene (principal)
CPT/HCPCS: 36415; 74177; 80053; 83605; 83690; 85025; 93005; 96361; 96374; 96375; 96376; 99284; J1171; J2060; J2270; J2405; Q9967

== ENCOUNTER 2024-02-09 06:15 | Day surgery (SDC) | payer OTHER, SELFPAY ==
[2022-11-08 20:57] VITALS: BMI 35.2
[2024-02-03 13:22] VITALS: BMI 35.2
[2024-02-09] VITALS (7 sets, daily range): BP systolic 109–126; BP diastolic 63–80; PULSE 70–92; RESP 12–18; TEMP 36.2; O2SAT 94–99; BMI 34.2
[2024-02-09] MEDS: LACTATED RINGERS 1,000 ML 42 ML IV (06:58)
[2024-02-09] MEDS: ACETAMINOPHEN 325 MG TABLET 975 MG PO (06:58)
--- NOTE | 2024-02-09 07:39 | SUR.OPER ---
Supine on padded OR bed, head on pillow, arms secured on padded arm boards at <90 degrees abduction, legs uncrossed, safety belt at thigh, tape over blanket over lower legs.
--- NOTE | 2024-02-09 07:57 | PM.PREOP ---
Pre-operative Note Interval Note History & Physical reviewed/Exam performed by Physician: Yes Changes to H&P: No H&P completed within 30 days and has changed as indicated here:: Patient was seen and examined. Patient did not lose any weight or quit smoking prior to surgery as discussed. He still wishes to proceed. We discussed that he will have a higher rate of recurrence. ASA Class (for procedural sedation): II
[2024-02-09] MEDS: CEFAZOLIN 2 GM/100 ML PREMIX 100 ML IV (08:09)
[2024-02-09] MEDS: BUPIVACAINE 0.25% (PF) 30 ML, EPINEPHrine 0.15 MG INJ (08:25)
--- NOTE | 2024-02-09 10:03 | PM.OP.1 ---
Operative Date/Time/Diagnoses Date of procedure: 02/09/24 Time of procedure: 10:03 Pre-op diagnosis: 1. bilateral recurrent inguinal hernias 2. Incarcerated incisional hernia, 4 cm in size Post-op diagnosis: same Procedure & Clinicians Procedure: 1. Laparoscopic repair of bilateral recurrent inguinal hernias with large left and right Bard 3DMax 2. Incarcerated incisional hernia, 4 cm in size, repaired with Bard [address] Same procedure as scheduled: Yes Indications: Painful, bowel containing hernia Surgeon: Chris Kulkarni Stone Polisher Machine: Tyrese Urena Click Yes if Unassisted: No Anesthesia Type: General Operative Notes Findings: recurrent, sigmoid containing left inguinal, fat containing right inguinal, small bowel containing incisional Closure Type: primary Specimen(s): none sent Prosthetic devices, grafts, tissues, transplants, or devices: Left Bard 3D max large Right Bard 3DMax large [address] round Estimated Blood Loss (mL): 20 Blood products transfused: none Procedure in detail: Patient was brought into the operating room suite. Time-out was performed. General anesthesia was induced. The abdomen was shaved prepped and draped in usual fashion. A total of 60 mL of 0.25% Marcaine with epinephrine were used to infiltrate all trocar sites. An 11 blade was used to make a supraumbilical incision overlying the incisional hernia. Incisional hernia sac was dissected free and the peritoneum was opened in a controlled fashion. All contents had been reduced. A 12 mm Luna trocar was then placed through the incisional hernia and pneumoperitoneum was achieved. 5 mm trocars were placed on the right and left lateral abdominal lawson. Cold scissors were used to develop preperitoneal flaps on the right side 1st and the left side 2nd. The peritoneum and preperitoneal fat was reduced on both sides. The pubic tubercle was cleared on both sides extending 2 cm below the iliopubic tract laterally beyond the psoas. After adequate clearing of the cord structures and reduction of the hernias, a large Bard 3DMax was placed on the left side followed by the right side. These both laid flat against the abdominal wall. No additional fixation of the mesh was used. The peritoneal flaps were closed with running 3-0 barbed sutures. Attention was then turned to the incisional hernia. The hernia sac was excised and discarded. The defect measured greater than 4 cm prior to primary closure. An [address] was placed in the preperitoneal space and sutured around the skirt with a 3-0 barbed suture which was also used to primarily close the defect over the mesh. Skin was closed with 4-0 Monocryl and Dermabond. Patient tolerated the procedure well was transferred to PACU in stable condition for anticipated same-day discharge. Complications: none Post-operative Condition: stable Disposition: PACU Plan for aftercare: home
[2024-02-09] MEDS: OXYCODONE IR 5 MG TABLET PO ×2 (10:21→10:54)
[2024-02-09] MEDS: hydrOXYzine 50 MG/ML INJ IM (10:22)
--- NOTE | 2024-02-09 11:42 | SUR.PHASEII ---
Dr Kulkarni called to clarify home pain meds. stated patient received rx for Tizanidine from the clinic. Patient notified. Patient reported he would need pain medication and that he would call the surgeon.
== END 2024-02-09 11:33 | disposition home or self-care (01) ==
PROVIDERS: Referring Provider Surgery; Visit Provider Surgery
PROC: (CPT 49651; principal; 2024-02-09 07:45)
PROC: 0YQ64ZZ Repair Left Inguinal Region, Percutaneous Endoscopic Approach (ICD-10-PCS; CPT 49651; 2024-02-09 07:45)
DX: K40.21 Bilateral inguinal hernia, without obstruction or gangrene, recurrent (principal); K43.2 Incisional hernia without obstruction or gangrene
CPT/HCPCS: 49651; J0171; J0330; J0690; J1100; J1171; J1885; J2405; J2704; J3010; J3410

== ENCOUNTER → 2024-02-18 09:52 | Outpatient (CLI) | payer OTHER, SELFPAY ==
[2022-11-08 20:57] VITALS: BMI 35.2
--- NOTE | 2024-02-18 09:53 | DI.US.S_ITS ---
PROCEDURE: US PERIPH VENOUS LOW EXTREM BI INDICATIONS: post-op leg swelling TECHNIQUE: Real-time imaging, as well as color and pulse Doppler interrogation, were performed of the deep veins of both legs from the inguinal ligament to the popliteal fossa, with documentation of the visualized calf veins. COMPARISON: None. FINDINGS: Right: The common femoral, femoral, popliteal, and the visualized calf veins are normally compressible, and free of intraluminal thrombus. Color and pulse Doppler demonstrate normal phasic intravascular flow. There is normal augmentation response to distal compression maneuver. Left: The common femoral, femoral, popliteal, and the visualized calf veins are normally compressible, and free of intraluminal thrombus. Color and pulse Doppler demonstrate normal phasic intravascular flow. There is normal augmentation response to distal compression maneuver. IMPRESSION: No findings of deep venous thrombosis in either lower extremity. Dictated by: Justyn Medina M.D. on 02/18/2024 at 10:38 Approved by: Justyn Medina M.D. on 02/18/2024 at 10:38
== END ==
PROVIDERS: Referring Provider Surgery; Visit Provider Surgery
DX: M79.89 Other specified soft tissue disorders (principal)
CPT/HCPCS: 93970